=== PATIENT | female | born 1950 | race Caucasian/White ===

== ENCOUNTER 2018-02-16 09:06 | Day surgery (SDC) | payer MEDICARE, OTHER ==
[~2018-02-16] VITALS: Ht 157.5 cm; Wt 70.8 kg
[~2018-02-16 09:06] MED LIST: ASPI81CH PO; ATOR10; ATOR10 PO; Aspir-Low81 MG; CEFP200 PO; CHOLESTEROL MED; Flomax0.4 MG PO; KETO10 PO; LISI10; LISI5 PO; METO25ER PO; MULTIVIT PO; NITR100CA PO; Omeprazole20 M1; Omeprazole20 M1 PO; PHENA200 PO; Percocet 5-3251 EACH PO
== END 2018-02-16 11:51 | disposition home or self-care (01) ==
LOC: ORSCSDS 09:06
PROVIDERS: Internal Medicine Gastroenterology
PROC: 0DBH8ZX Excision of Cecum, Via Natural or Artificial Opening Endoscopic, Diagnostic (ICD-10-PCS; principal; 2018-02-16 10:30)
DX: Z12.11 Encounter for screening for malignant neoplasm of colon (principal); K64.8 Other hemorrhoids; K57.30 Diverticulosis of large intestine without perforation or abscess without bleeding; R01.1 Cardiac murmur, unspecified; I10 Essential (primary) hypertension; E78.5 Hyperlipidemia, unspecified; Z86.010 Personal history of colon polyps; Z79.899 Other long term (current) drug therapy
CPT/HCPCS: 88305; J7120

== ENCOUNTER → 2018-12-18 | Outpatient (CLI) | payer MEDICARE, OTHER ==
[2018-12-18 11:10] LABS: BASOPHILS ABSOLUTE AUTO 0.03 K/mm3 (0.00-0.23); BASOPHILS PERCENT AUTO 0 % (0-2); EOSINOPHILS ABSOLUTE AUTO 0.17 K/mm3 (0.00-0.68); EOSINOPHILS PERCENT AUTO 3 % (0-6); Hemoglobin 14.6 g/dL (11.5-16.0); IMMATURE GRAN ABSOLUTE AUTO 0.02 K/mm3 (0.00-0.10); IMMATURE GRAN PERCENT AUTO 0 % (0-1); LYMPHOCYTES ABSOLUTE AUTO 1.86 K/mm3 (0.84-5.20); LYMPHOCYTES PERCENT AUTO 28 % (21-46); MONOCYTES ABSOLUTE AUTO 0.57 K/mm3 (0.16-1.47); MONOCYTES PERCENT AUTO 9 % (4-13); Mean Corpuscular HGB 33.7 pg (26.0-34.0); Mean Corpuscular HGB Conc 34.8 g/dL (31.5-36.5); Mean Corpuscular Volume 97 fL (80-100); Mean Platelet Volume 9.4 fL (9.1-12.4); NEUTROPHILS ABSOLUTE AUTO 4.04 K/mm3 (1.96-9.15); NEUTROPHILS PERCENT AUTO 61 % (41-73); Platelet Count 203 K/mm3 (150-400); RDW Coefficient Variation 12.4 % (11.7-14.2); RDW Standard Deviation 44.4 fL (35.1-46.3); Red Blood Cell Count 4.33 M/mm3 (3.80-5.20); White Blood Cell Count 6.69 K/mm3 (4.00-11.30)
[2018-12-18 11:26] LABS: Alanine Aminotransfer (ALT/SGP 28 U/L (12-78); Albumin, Blood 4.2 g/dL (3.4-5.0); Albumin/Globulin Ratio 1.2 (0.8-1.8); Alk Phos 79 U/L (40-126); Anion Gap 12 mmol/L (6-16); Aspartate Aminotrans (AST/SGOT 24 U/L (12-37); Bilirubin, Total 0.4 mg/dL (0.1-1.0); Blood Urea Nitrogen 22 mg/dL (8-24); Bun/Creatinine Ratio 27.5 (12.0-20.0); CO2, Blood 25 mmol/L (21-32); Chloride, Blood 105 mmol/L (98-108); Globulin, Blood 3.6 g/dL (2.2-4.0); Glomerular Filtration Rate >60 (60-); Glucose, Blood 106 mg/dL (70-99); Sodium, Blood 142 mmol/L (136-145); Total Protein, Blood 7.8 g/dL (6.4-8.2)
== END | disposition home or self-care (01) ==
LOC: LAB EV 11:07 → LAB SHORT 11:07
PROVIDERS: Physician Assistant
DX: R10.11 Right upper quadrant pain (principal)
CPT/HCPCS: 80053; 83690; 85025

== ENCOUNTER 2020-07-03 07:04 | Day surgery (SDC) | payer MEDICARE, OTHER ==
[~2020-07-03] VITALS: Ht 157.5 cm; Wt 71.7 kg
[~2020-07-03 07:04] MED LIST changes: +FISH OIL PO
--- NOTE | 2020-07-03 08:23 | NUR ---
History, Chart, Medications and Allergies reviewed before start of procedure. Lungs clear T/O to Auscultation. Patient confirms NPO status and agrees with scheduled surgery. Pre-Op teaching done. Pt verbalizes understanding. Patient States Post-Procedure ride home has been arranged.
--- NOTE | 2020-07-03 16:34 | NUR ---
SHIFT SUMMARY S/P LAVH TODAY. POST OP VSS AND COMPLETE. 2 NORCO + KPAD FOR PAIN. X2 LAP SITES TO ABD WITH STERI STRIPS ARE CDI. VAGINAL PACKING IN PLACE PER PACU AND NO VAGINAL BLEEDING NOTED ON JUNI PAD CURRENTLY. IVF INFUSING PER ORDERS. JESSICA CLEAR LIQ DIET. BOSTON WITH CLEAR YELLOW URINE. PLANNING TO GET OOB TO CHAIR FOR DINNER. CALL LIGHT WITHIN REACH.
[2020-07-04 04:58] LABS: BASOPHILS PERCENT AUTO 0 % (0-2); EOSINOPHILS ABSOLUTE AUTO 0.01 K/mm3 (0.00-0.68); EOSINOPHILS PERCENT AUTO 0 % (0-6); Hematocrit 36.2 % (33.0-51.0); Hemoglobin 12.2 g/dL (11.5-16.0); IMMATURE GRAN ABSOLUTE AUTO 0.02 K/mm3 (0.00-0.10); IMMATURE GRAN PERCENT AUTO 0 % (0-1); LYMPHOCYTES ABSOLUTE AUTO 1.52 K/mm3 (0.84-5.20); LYMPHOCYTES PERCENT AUTO 14 % (21-46); MONOCYTES ABSOLUTE AUTO 0.89 K/mm3 (0.16-1.47); MONOCYTES PERCENT AUTO 8 % (4-13); Mean Corpuscular HGB 32.7 pg (26.0-34.0); Mean Corpuscular HGB Conc 33.7 g/dL (31.5-36.5); Mean Corpuscular Volume 97 fL (80-100); Mean Platelet Volume 9.8 fL (9.1-12.4); NEUTROPHILS ABSOLUTE AUTO 8.76 K/mm3 (1.96-9.15); NEUTROPHILS PERCENT AUTO 78 % (41-73); Platelet Count 182 K/mm3 (150-400); RDW Coefficient Variation 11.9 % (11.7-14.2); Red Blood Cell Count 3.73 M/mm3 (3.80-5.20)
--- NOTE | 2020-07-04 07:12 | NUR ---
07/04/20 0712 Amanda Sweeney VERIFICATIONS: EDIT CHART.
--- NOTE | 2020-07-04 12:25 | NUR ---
1145 discharge to home with a friend. pt reports pain is well controlled. pt ambulating independently. pt voiding pink tinged urine, scant vaginal drainage
== END 2020-07-04 15:19 | disposition home or self-care (01) ==
LOC: ORSCMMR 07:04 → ORD 09:00 → SURS 12:35 → ORSCMMR 07-04 15:19
PROVIDERS: Obstetrics & Gynecology
PROC: 0UT2FZZ Resection of Bilateral Ovaries, Via Natural or Artificial Opening With Percutaneous Endoscopic Assistance (ICD-10-PCS; principal; 2020-07-03 09:00)
PROC: 0UT9FZZ Resection of Uterus, Via Natural or Artificial Opening With Percutaneous Endoscopic Assistance (ICD-10-PCS; principal; 2020-07-03 09:00)
PROC: 0JQC0ZZ Repair Pelvic Region Subcutaneous Tissue and Fascia, Open Approach (ICD-10-PCS; principal; 2020-07-03 09:00)
PROC: 0UT7FZZ Resection of Bilateral Fallopian Tubes, Via Natural or Artificial Opening With Percutaneous Endoscopic Assistance (ICD-10-PCS; principal; 2020-07-03 09:00)
DX: N81.4 Uterovaginal prolapse, unspecified (principal); N81.10 Cystocele, unspecified; I10 Essential (primary) hypertension; K21.9 Gastro-esophageal reflux disease without esophagitis; Z79.899 Other long term (current) drug therapy; Z79.82 Long term (current) use of aspirin
CPT/HCPCS: 36415; 85025; 88307; A9270-GY; J0690; J1100; J1885; J2250; J2370; J2405; J2704; J2710; J2765; J3010; J7120

== ENCOUNTER 2020-12-26 12:31 | Emergency (ER) | payer MEDICARE, OTHER ==
[~2020-12-26] VITALS: Ht 167.6 cm; Wt 72.6 kg
[~2020-12-26 12:31] MED LIST changes: -ASPI81CH PO; +Aspirin EC81 MG PO; +DAILY-VITE1 EACH PO; -MULTIVIT PO; +OMEP20ER PO; -Omeprazole20 M1 PO
[2020-12-26 13:55] LABS: BASOPHILS ABSOLUTE AUTO 0.04 K/mm3 (0.00-0.23); BASOPHILS PERCENT AUTO 1 % (0-2); EOSINOPHILS ABSOLUTE AUTO 0.15 K/mm3 (0.00-0.68); EOSINOPHILS PERCENT AUTO 2 % (0-6); Hematocrit 45.4 % (33.0-51.0); Hemoglobin 15.6 g/dL (11.5-16.0); IMMATURE GRAN ABSOLUTE AUTO 0.01 K/mm3 (0.00-0.10); IMMATURE GRAN PERCENT AUTO 0 % (0-1); LYMPHOCYTES ABSOLUTE AUTO 2.18 K/mm3 (0.84-5.20); LYMPHOCYTES PERCENT AUTO 32 % (21-46); MONOCYTES ABSOLUTE AUTO 0.67 K/mm3 (0.16-1.47); MONOCYTES PERCENT AUTO 10 % (4-13); Mean Corpuscular HGB 33.5 pg (26.0-34.0); Mean Corpuscular HGB Conc 34.4 g/dL (31.5-36.5); Mean Corpuscular Volume 97 fL (80-100); NEUTROPHILS ABSOLUTE AUTO 3.87 K/mm3 (1.96-9.15); NEUTROPHILS PERCENT AUTO 56 % (41-73); Platelet Count 241 K/mm3 (150-400); RDW Coefficient Variation 12.4 % (11.7-14.2); RDW Standard Deviation 44.7 fL (35.1-46.3); Red Blood Cell Count 4.66 M/mm3 (3.80-5.20); White Blood Cell Count 6.92 K/mm3 (4.00-11.30)
[2020-12-26 14:14] LABS: Alanine Aminotransfer (ALT/SGP 34 U/L (12-78); Albumin, Blood 4.1 g/dL (3.4-5.0); Alk Phos 77 U/L (50-136); Anion Gap 8 mmol/L (6-16); Aspartate Aminotrans (AST/SGOT 38 U/L (12-37); Bilirubin, Total 0.6 mg/dL (0.1-1.0); Blood Urea Nitrogen 36 mg/dL (8-24); Bun/Creatinine Ratio 54.3 (12.0-20.0); CO2, Blood 23 mmol/L (21-32); Calcium, Blood 10.6 mg/dL (8.5-10.1); Chloride, Blood 107 mmol/L (98-108); Creatinine, Blood 0.66 mg/dL (0.40-1.00); Globulin, Blood 4.2 g/dL (2.2-4.0); Glomerular Filtration Rate >60 (60-); Glucose, Blood 126 mg/dL (70-99); Potassium, Blood 4.6 mmol/L (3.5-5.5); Sodium, Blood 138 mmol/L (136-145); Total Protein, Blood 8.3 g/dL (6.4-8.2); Troponin I <0.015 ng/mL (0.000-0.040)
[2021-03-05] MEDS ORDERED: CLIMARA1 EACH TOP (08:07)
== END 2020-12-26 18:43 | disposition home or self-care (01) ==
LOC: ER 12:31
PROVIDERS: Physician Assistant
DX: R07.89 Other chest pain (principal); R06.02 Shortness of breath; R42 Dizziness and giddiness; I10 Essential (primary) hypertension; E78.5 Hyperlipidemia, unspecified; Z79.82 Long term (current) use of aspirin; Z79.899 Other long term (current) drug therapy; Z87.442 Personal history of urinary calculi
CPT/HCPCS: 36415; 71046; 80053; 84484; 85025; 93005; 93010; 99285-25

== ENCOUNTER → 2021-05-13 | Outpatient (CLI) | payer MEDICARE, OTHER ==
[~2021-05-13] MED LIST changes: +CLIMARA1 EACH TOP; +MOTRIN IB200 MG PO
== END | disposition home or self-care (01) ==
LOC: LAB 07:41 → LAB SHORT 07:41
DX: L57.0 Actinic keratosis (principal)
CPT/HCPCS: 88305

== ENCOUNTER 2021-06-08 09:27 | Day surgery (SDC) | payer MEDICARE, OTHER ==
[~2021-06-08] VITALS: Ht 157.5 cm; Wt 72.8 kg
[~2021-06-08 09:27] MED LIST changes: -MOTRIN IB200 MG PO
--- NOTE | 2021-06-08 10:41 | NUR ---
History, Chart, Medications and Allergies reviewed before start of procedure. Patient confirms NPO status and agrees with scheduled surgery. Patient States Post-Procedure ride home has been arranged with her [id number].
--- NOTE | 2021-06-08 13:41 | NUR ---
PT ARRIVED TO [id number] AT ABOUT 1300. PT IS A/O X4. REPORTS PAIN IS MANAGED AT THIS TIME. BOSTON AND VAGINAL PACKING IN PLACE. VSS. PT SIPPING ON WATER. ORIENTED TO ROOM AND CALL LIGHT
--- NOTE | 2021-06-08 16:32 | NUR ---
PT AMBULATED IN HALLWAY, TOLERATED WELL. BOSTON AND PACKING REMOVED. PT MEDICATED WITH NORCO FOR PAIN.
--- NOTE | 2021-06-08 17:41 | NUR ---
SHIFT SUMMARY PT IS A/O X4. PT HERE FOR EXTENDED RECOVERY. SHE HAS AMBULATED IN HALLWAY, TOLERATING PO INTAKE W/O NAUSEA, BOSTON REMOVED, AND PACKING REMOVED. WAITING ON VOID CURRENTLY. PAIN MANAGED WITH PO PAIN MED PER ORDER. JUNI PAD IN PLACE TO MONITOR BLEEDING.
--- NOTE | 2021-06-09 06:36 | NUR ---
PT A/OX4. VSS ON RA. PAIN MANAGED WELL W/ NORCO AND TORADOL. SMALL AMT OF DRAINAGE ON JUNI PAD, CHANGED 1X. SLEEPING B/W CARE. UP TO TOILET. USING CALL LIGHT TO MAKE NEEDS KNOWN.
[2021-06-09] MEDS ORDERED: Percocet 5-3251 EACH PO (09:05)
[2021-06-09] MEDS ORDERED: MOTRIN IB200 MG PO (09:06)
--- NOTE | 2021-06-09 09:49 | NUR ---
DISCHARGE PT IS A/O X4, IND IN ROOM AND HALLWAY. PT IS AMBULATING, TOLERATING PO INTAKE, AND VOIDING. PAIN MANAGED WITH PO PAIN MED PER ORDER PRN. PT REPORTS MINIMAL BLEEDING ON JUNI PAD. IV DC'D WNL. DC INSTRUCTIONS REVIEWED WITH PT; SHE REPORTS UNDERSTANDING AND NO CONCERNS. SCRIPT AND PRINTED INSTRUCTIONS SENT WITH PT. PT CURRENTLY WAITING FOR RIDE TO ARRIVE.
--- NOTE | 2021-06-09 10:07 | NUR ---
PT DC'D AT THIS TIME. ESCORTED TO VEHICLE VIA WHEELCHAIR BY STAFF.
== END 2021-06-09 10:12 | disposition home or self-care (01) ==
LOC: ORSCMMR 09:27 → ORD 11:00 → ORSCMMR 11:00 → SURS 13:29 → ORSCMMR 06-09 10:12 → SURS 06-09 10:12
PROVIDERS: Obstetrics & Gynecology
PROC: 0JQC0ZZ Repair Pelvic Region Subcutaneous Tissue and Fascia, Open Approach (ICD-10-PCS; principal; 2021-06-08 11:00)
DX: N81.10 Cystocele, unspecified (principal); I10 Essential (primary) hypertension; K21.9 Gastro-esophageal reflux disease without esophagitis; E78.00 Pure hypercholesterolemia, unspecified; Z79.899 Other long term (current) drug therapy; Z79.82 Long term (current) use of aspirin
CPT/HCPCS: A9270; J0171; J1100; J1885; J2250; J2405; J2704; J3010; J7120

== ENCOUNTER → 2022-09-21 | Outpatient (CLI) | payer MEDICARE, OTHER ==
[~2022-09-21] MED LIST changes: +MOTRIN IB200 MG PO
== END | disposition home or self-care (01) ==
LOC: LAB 11:04 → LAB SHORT 11:04
DX: D48.5 Neoplasm of uncertain behavior of skin (principal)
CPT/HCPCS: 88304

== ENCOUNTER → 2023-04-14 | Outpatient (CLI) | payer OTHER | END | disposition home or self-care (01) | LOC: LAB 19:01 → LAB SHORT 19:01 | DX: N30.00 Acute cystitis without hematuria (principal) | CPT/HCPCS: 87086 ==

== ENCOUNTER 2023-06-05 10:22 | Emergency (ER) | payer OTHER ==
[~2023-06-05] VITALS: Ht 157.5 cm; Wt 72.6 kg
[2023-06-05 10:58] LABS: BASOPHILS ABSOLUTE AUTO 0.03 K/mm3 (0.00-0.23); BASOPHILS PERCENT AUTO 0 % (0-2); EOSINOPHILS ABSOLUTE AUTO 0.17 K/mm3 (0.00-0.68); EOSINOPHILS PERCENT AUTO 2 % (0-6); Hematocrit 43.3 % (33.0-51.0); Hemoglobin 15.2 g/dL (11.5-16.0); IMMATURE GRAN ABSOLUTE AUTO 0.01 K/mm3 (0.00-0.10); IMMATURE GRAN PERCENT AUTO 0 % (0-1); LYMPHOCYTES ABSOLUTE AUTO 1.88 K/mm3 (0.84-5.20); LYMPHOCYTES PERCENT AUTO 27 % (21-46); MONOCYTES ABSOLUTE AUTO 0.58 K/mm3 (0.16-1.47); MONOCYTES PERCENT AUTO 8 % (4-13); Mean Corpuscular HGB Conc 35.1 g/dL (31.5-36.5); Mean Corpuscular Volume 94 fL (80-100); Mean Platelet Volume 9.7 fL (9.1-12.4); NEUTROPHILS ABSOLUTE AUTO 4.38 K/mm3 (1.96-9.15); NEUTROPHILS PERCENT AUTO 62 % (41-73); Platelet Count 232 K/mm3 (150-400); RDW Coefficient Variation 12.9 % (11.7-14.2); RDW Standard Deviation 44.9 fL (35.1-46.3); White Blood Cell Count 7.05 K/mm3 (4.00-11.30)
[2023-06-05 11:19] LABS: Albumin, Blood 4.1 g/dL (3.4-5.0); Albumin/Globulin Ratio 1.1 (0.8-1.8); Bilirubin, Total 0.6 mg/dL (0.1-1.0); Bun/Creatinine Ratio 37.2 (12.0-20.0); Creatinine, Blood 0.75 mg/dL (0.40-1.00); Globulin, Blood 3.6 g/dL (2.2-4.0); Potassium, Blood 4.1 mmol/L (3.5-5.5); Total Protein, Blood 7.7 g/dL (6.4-8.2)
[2023-06-05 12:00] VITALS: BP 134/75
== END 2023-06-05 12:17 | disposition home or self-care (01) ==
LOC: ER 10:22
PROVIDERS: Emergency Medicine
DX: R07.89 Other chest pain (principal); I10 Essential (primary) hypertension; E78.5 Hyperlipidemia, unspecified; K21.9 Gastro-esophageal reflux disease without esophagitis; Z87.442 Personal history of urinary calculi; Z79.82 Long term (current) use of aspirin; Z79.891 Long term (current) use of opiate analgesic; Z79.899 Other long term (current) drug therapy
CPT/HCPCS: 71045; 80053; 83880; 84484; 85025; 93005; 93010; 99285-25

== ENCOUNTER 2024-06-06 06:29 | Day surgery (SDC) | payer OTHER ==
[~2024-06-06] VITALS: Ht 157.5 cm; Wt 71.2 kg
[2024-06-06] MEDS ORDERED: ESTRADIOL1 EAC2 (06:59)
[2024-06-06] MEDS ORDERED: propofoL 50 ML IV ONE (07:16)
[2024-06-06] MEDS ORDERED: Lactated Ringer's 1,000 ML IV ONE ×2 (07:17→07:55)
[2024-06-06 08:48] VITALS: BP 101/66
== END 2024-06-06 08:55 | disposition home or self-care (01) ==
LOC: ORSCSDS 06:29
PROVIDERS: Specialist
PROC: 0DJD8ZZ Inspection of Lower Intestinal Tract, Via Natural or Artificial Opening Endoscopic (ICD-10-PCS; principal; 2024-06-06 08:00)
DX: Z12.11 Encounter for screening for malignant neoplasm of colon (principal); Z86.010 Personal history of colon polyps; K64.8 Other hemorrhoids; K64.4 Residual hemorrhoidal skin tags; K57.30 Diverticulosis of large intestine without perforation or abscess without bleeding; I10 Essential (primary) hypertension; N20.0 Calculus of kidney; Z79.899 Other long term (current) drug therapy
CPT/HCPCS: J2704; J7120

== ENCOUNTER → 2025-05-22 | Outpatient (CLI) | payer OTHER ==
[~2025-05-22] MED LIST changes: +ESTRADIOL1 EAC2
[2025-05-27 12:09] LABS: CALCIUM, URINE - PER 24H 296 mg/d (100-250); CALCIUM, URINE - PER VOLUME 19.7 mg/dL; CHLORIDE, URINE - PER 24H 92 mmol/d (140-250); CHLORIDE, URINE - PER VOLUME 61 mmol/L; CITRIC ACID, URINE - PER 24H 1000 mg/d (320-1240); CITRIC ACID,URINE - PER VOLUME 667 mg/L; CREATININE, URINE - PER 24H 1020 mg/d (500-1400); CREATININE, URINE - PER VOLUME 68 mg/dL; HOURS COLLECTED 24 hr; MAGNESIUM, URINE - PER VOLUME 7.7 mg/dL; MAGNESIUM, URINE PER 24H 116 mg/d (12-199); OXALATE, URINE - PER 24H 20 mg/d (13-40); OXALATE, URINE - PER VOLUME 13 mg/L; PH, URINE 5.73 (5.00-7.50); PHOSPHORUS, URINE - PER 24H 705 mg/d (400-1300); PHOSPHORUS, URINE - PER VOLUME 47 mg/dL; POTASSIUM, URINE - PER 24H 32 mmol/d (25-125); POTASSIUM, URINE - PER VOLUME 21 mmol/L; SODIUM, URINE - PER 24H 120 mmol/d (51-286); SODIUM, URINE - PER VOLUME 80 mmol/L; SULFATE, URINE - PER 24H 21 mmol/d (6-30); SULFATE, URINE - PER VOLUME 14 mmol/L; TOTAL VOLUME 1500 mL; URIC ACID, URINE - PER 24H 410 mg/d (250-750); URIC ACID, URINE - PER VOLUME 27.3 mg/dL; URINE SUPERSATURATION INTERP Abnormal; URINE SUPERSATURATION, CAHPO4 1.33; URINE SUPERSATURATION, CAOX 5.64; URINE SUPERSATURATION, UA CALC 0.68
== END | disposition home or self-care (01) ==
LOC: LAB 07:00 → LAB SHORT 07:00
PROVIDERS: Urology
DX: N20.0 Calculus of kidney (principal)
CPT/HCPCS: 81003; 81050; 82131; 82140; 82340; 82436; 82507; 82570; 83735; 83935; 83945; 84105; 84133; 84300; 84392; 84560